=== PATIENT | male | born 1955 | race Caucasian/White ===

== ENCOUNTER → 2020-03-01 | Outpatient (CLI) | payer MEDICARE, OTHER ==
--- NOTE | 2020-03-01 16:11 | KCIC ---
EXAM: Right shoulder, 3 views. HISTORY: Pain. Fall. COMPARISON: None. FINDINGS: 3 views of the right shoulder obtained. There is no fracture, dislocation or subluxation. T here is mild degenerative spurring of the acromial clavicular joint, including a small superolaterall y directed distal clavicular spur. There is suspected slight calcification of the rotator cuff. IMPRESSION: 1. No acute osseous finding. 2. Mild acromioclavicular joint osteoarthritis. 3. Suspected slight calcification of the distal rotator cuff. Electronically signed by: Nina Gómez MD (03/01/2020 4:09 PM) [id number]
== END ==
LOC: KCIC 14:51
PROVIDERS: ATTEND Family Medicine
DX: M19.011 Primary osteoarthritis, right shoulder (principal)
CPT/HCPCS: 73030